=== PATIENT | male | born 1950 | race Caucasian/White ===

== ENCOUNTER 2021-06-30 09:45 | Inpatient (IN) ==
[2021-06-30 09:50] VITALS: BMI 34.8
--- NOTE | 2021-06-30 10:14 | DR.URIAD ---
HPI Time Seen Time Seen by Provider: 06/30/21 10:11 PCP Primary Care Physician: Lora Complaint Chief Complaint Doctors Comments: c/o SOB and pos covid x 7 days. Chief Complaint:: Pt c/o shortness of breath, nausea and vomiting. He states he is covid positive. Test was done 06/21/21. Pt reports O2 sat was 77% this am. Self Treatment fo Chief Complaint: Zithromax, Prednisone, neb treatments COVID-19 Coronavirus risk:travel/contact w/high risk person: Yes Has patient experienced Coronavirus symptoms: Yes Coronavirus symptoms experienced: Shortness of Breath Reviewed Nurses Notes Reviewed: Yes Source History Provided: Patient Mode of Arrival Mode of Arrival: Wheelchair Timing Onset of Chief Complaint: 06/19/21 PMH PMH Past Medical History: Yes Past Medical History: Hypertension Past Surgical History: Yes Past Surgical History Comment: hernia repair Family History History of Family Medical Conditions: Yes Family Medical History: Hypertension Social History Does patient currently use any type of tobacco product: No Have you used tobacco products in the last 12 months: No Type of Tobacco Use: None Does any household member use tobacco: No Alcohol Use: None Do you use any recreational Drugs:: No Lives With: Family Lives Where: Home Travel Risk Coronavirus risk:travel/contact w/high risk person: Yes Has patient experienced Coronavirus symptoms: Yes Coronavirus symptoms experienced: Shortness of Breath Infectious screening In the last 2 months have you had wt loss of >10#?: NO Have you had fever, night sweats or hemotysis?: No Have you traveled outside the country in the last 6 months?: No Isolation: Droplet ROS Review of Systems Constitutional: See HPI Eyes: No Symptoms Reported ENTM: No Symptoms Reported Respiratoy: See HPI Gastrointestinal/Abdominal: See HPI Neurological: No Symptoms Reported All Other Systems: Reviewed and Negative PE Vital Signs Vitals: Temperature 97.4 F Pulse Rate 88 Respiratory Rate 22 Blood Pressure 133/72 O2 Sat by Pulse Oximetry 94 General General Appearance: Alert and In Distress Head Head Exam: Normal Inspection, Atraumatic and Normocephalic ENT ENT Exam: Normal Exam Neck Neck Exam: Normal Inspection Chest Chest Inspection: Normal Inspection Respiratory Respiratory Exam: Respiratory Distress; negative Chest Wall Tenderness Respiratory Exam: Bilateral: Wheezing, Bilateral: Rales, Bilateral: Rhonchi and Bilateral: Decreased Breath Sounds Cardiovascular Cardiovascular Exam: Regular Rate and Normal Heart Sounds Abdominal Exam Abdominal Exam: Normal Inspection, Normal Bowel Sounds and Soft; negative Distention and Tenderness Extremeties Extremities Exam: Normal Inspection Back Back Exam: Normal Inspection Skin Skin Exam: Warm, Dry and Intact ROR Labs Reviewed Laboratory Results Reviewed?: Yes (pos covid. ) Result Diagrams: 06/30/21 10:17 06/30/21 10:17 Laboratory: WBC 8.2 X10^3/uL (3.6-10.0) 06/30/21 10:17 RBC 5.13 X10^6/uL (4.7-6.0) 06/30/21 10:17 Hgb 15.3 g/dL (13.5-18.0) 06/30/21 10:17 Hct 44.5 % (42.0-54.0) 06/30/21 10:17 MCV 86.7 fL (80.0-100.0) 06/30/21 10:17 MCH 29.8 pg (27.0-34.0) 06/30/21 10:17 MCHC 34.4 g/dL (33.0-35.0) 06/30/21 10:17 RDW 13.8 % (11.6-16.5) 06/30/21 10:17 Plt Count 373 X10^3/uL (150.0-450.0) 06/30/21 10:17 MPV 7.3 fL (7.4-11.0) L 06/30/21 10:17 Neut % (Auto) 82.3 % (42.0-75.0) H 06/30/21 10:17 Lymph % (Auto) 8.5 % (21.0-51.0) L 06/30/21 10:17 [place] % (Auto) 8.0 % (0.0-13.0) 06/30/21 10:17 Eos % (Auto) 1.0 % (0.9-2.9) 06/30/21 10:17 Baso % (Auto) 0.2 % (0.2-1.0) 06/30/21 10:17 Neut # (Auto) 6.7 x10^3/uL (2.2-4.8) H 06/30/21 10:17 Lymph # (Auto) 0.7 X10^3/uL (1.3-2.9) L 06/30/21 10:17 [place] # (Auto) 0.7 x10^3/uL (0.3-0.8) 06/30/21 10:17 Eos # (Auto) 0.1 x10^3/uL (0.0-0.2) 06/30/21 10:17 Baso # (Auto) 0.0 X10^3/uL (0.0-0.1) 06/30/21 10:17 Absolute Nucleated RBC 0.1 /100WBC 06/30/21 10:17 D-Dimer 1.35 ug/ml (0.0-0.57) H* 06/30/21 10:17 Sample Site Rbra 06/30/21 10:15 ABG pH 7.510 (7.35-7.45) H 06/30/21 10:15 ABG pCO2 36.0 mmHg (35.0-45.0) 06/30/21 10:15 ABG pO2 54.0 mmHg (80.0-100.0) L 06/30/21 10:15 ABG HCO3 28.7 mmol/L (22-26) H 06/30/21 10:15 ABG O2 Saturation 91.0 % (90-100) 06/30/21 10:15 ABG Base Excess 5.5 mmol/L (-2.0-2.0) H 06/30/21 10:15 [place] Test N/a 06/30/21 10:15 A-a Gradient 51.0 mmHg 06/30/21 10:15 FiO2 21.0 06/30/21 10:15 Blood Gas Comments Pt jonah well elj 06/30/21 10:15 Sodium 138 mmol/L (136-145) 06/30/21 10:17 Corrected Sodium 140 mmol/L (136-145) 06/30/21 10:17 Potassium 3.2 mmol/L (3.5-5.1) L 06/30/21 10:17 Chloride 100 mmol/L (98-107) 06/30/21 10:17 Carbon Dioxide 27.2 mmol/L (21-32) 06/30/21 10:17 BUN 26 mg/dL (7-18) H 06/30/21 10:17 Creatinine 1.03 mg/dL (0.70-1.30) 06/30/21 10:17 Est GFR (MDRD) Af Amer > 60 (>60) 06/30/21 10:17 Est GFR (MDRD) Non-Af > 60 (>60) 06/30/21 10:17 Glucose 165 mg/dL (65-99) H 06/30/21 10:17 Calcium 8.9 mg/dL (8.5-10.1) 06/30/21 10:17 Corrected Calcium 10.0 mg/dL (8.5-10.1) 06/30/21 10:17 Ferritin 1656 ng/mL (26-388) H 06/30/21 10:17 Total Bilirubin 1.50 mg/dL (0.2-1.0) H 06/30/21 10:17 AST 58 Units/L (15-37) H 06/30/21 10:17 ALT 100 Units/L (12-78) H 06/30/21 10:17 Alkaline Phosphatase 67 Units/L (46-116) 06/30/21 10:17 C-Reactive Protein 93.40 mg/L (0-3.0) H 06/30/21 10:17 B-Natriuretic Peptide 13.6 pg/mL (0-79) 06/30/21 10:17 Total Protein 7.2 g/dL (6.4-8.2) 06/30/21 10:17 Albumin 2.6 g/dL (3.4-5.0) L 06/30/21 10:17 Globulin 4.6 g/dL (2.5-4.5) H 06/30/21 10:17 Albumin/Globulin Ratio 0.6 Ratio (1.1-2.1) L 06/30/21 10:17 SARS-CoV-2 (PCR) Positive (NEGATIVE) A 06/30/21 13:03 Influenza Type A (PCR) Negative (NEGATIVE) 06/30/21 13:03 Influenza Type B (PCR) Negative (NEGATIVE) 06/30/21 13:03 RSV (PCR) Negative (NEGATIVE) 06/30/21 13:03 XRAY X-ray Results: cxr shows bilat infiltrates. CT unable to assess for PE. Opioid Opioid Risk Tool Age (Jung box if 16-45): No History of Preadolescent Sexual Abuse: No Total: 0 Total Score Risk Category: Low Risk Copyright: Mal [employer] predicting aberrant behaviors Diagnosis Discharge Problem: COVID, Acute respiratory distress ADDITIONAL NOTES Additional Notes Additional Notes: admit to dr diamond
[2021-06-30 10:21] LABS: ABG BASE EXCESS 5.5 mmol/L (-2.0-2.0); ABG HCO3 28.7 mmol/L (22-26)
[2021-06-30 10:41] LABS: BASOPHILS % (AUTO) 0.2 % (0.2-1.0); EOSINOPHILS # (AUTO) 0.1 x10^3/uL (0.0-0.2); HEMATOCRIT 44.5 % (42.0-54.0); HEMOGLOBIN 15.3 g/dL (13.5-18.0); LYMPHOCYTES # (AUTO) 0.7 X10^3/uL (1.3-2.9); LYMPHOCYTES % (AUTO) 8.5 % (21.0-51.0); MEAN CORPUSCULAR HEMOGLOBIN 29.8 pg (27.0-34.0); MEAN CORPUSCULAR HGB CONC 34.4 g/dL (33.0-35.0); MEAN CORPUSCULAR VOLUME 86.7 fL (80.0-100.0); MEAN PLATELET VOLUME 7.3 fL (7.4-11.0); MONOCYTES # (AUTO) 0.7 x10^3/uL (0.3-0.8); NEUTROPHILS # (AUTO) 6.7 x10^3/uL (2.2-4.8); NEUTROPHILS % (AUTO) 82.3 % (42.0-75.0); PLATELET COUNT 373 X10^3/uL (150.0-450.0); RED BLOOD COUNT 5.13 X10^6/uL (4.7-6.0); RED CELL DISTRIBUTION WIDTH 13.8 % (11.6-16.5); WHITE BLOOD COUNT 8.2 X10^3/uL (3.6-10.0)
--- NOTE | 2021-06-30 10:49 | RAD ---
HISTORYCOUGH, COVIDSTUDYCHEST, 1 VIEWCOMPARISONNoneTECHNIQUEPortable chest radiographFINDINGSDeveloping patchy bilateral pulmonary opacities/infiltrates with peripheral, subpleural distribution and peribronchial distribution is compatible with an atypical pneumonia pattern. The heart size and mediastinal contours are normal. The pleural spaces are clear. There is no evidence of free air or pneumothorax. No acute osseous abnormalities of the chest are demonstrated.IMPRESSIONModerate, multifocal bilateral pulmonary opacities/infiltrates suggestive of an atypical pneumonia pattern. This may be associated with nonspecific viral and atypical organism infections, including COVID-19 the appropriate clinical settingElectronically signed by: SHARON LAROSE (Jun 30, 2021 10:47:54)
[2021-06-30 10:54] LABS: ALANINE AMINOTRANSFERASE 100 Units/L (12-78); ALBUMIN 2.6 g/dL (3.4-5.0); ALKALINE PHOSPHATASE 67 Units/L (46-116); ASPARTATE AMINO TRANSFERASE 58 Units/L (15-37); BLOOD UREA NITROGEN 26 mg/dL (7-18); CALCIUM 8.9 mg/dL (8.5-10.1); CARBON DIOXIDE 27.2 mmol/L (21-32); CHLORIDE 100 mmol/L (98-107); COR NA(FOR HYPERGLY) 140 mmol/L (136-145); CREATININE 1.03 mg/dL (0.70-1.30); SODIUM 138 mmol/L (136-145); TOTAL PROTEIN 7.2 g/dL (6.4-8.2); eGFR NON BLACK RACES > 60 (>60)
[2021-06-30] MEDS ORDERED: NS 100 ML IV 100 ML ONE (11:29)
--- NOTE | 2021-06-30 12:20 | CT ---
HISTORYCOVID, ELEVATED D DIMERSTUDYCTA CHESTCOMPARISONNone availableTECHNIQUEPulmonary angiogram protocol was performed. 3D MIPS images were performed. CT scan was performed following ALARA (As low as Reasonably Achievable).Coronal and Sagittal reformatted images were performed..FINDINGSTechnically limited study for the diagnosis of pulmonary embolism, the contrast in the main pulmonary arteries is approximately 97, most of the contrast is seen in the left atrium. There is no pleural or pericardial effusions. There is no axillary adenopathy. There is diffuse fatty liver, no adrenal masses, the spleen is nonenlarged, the stomach is decompressedThere are small sub carinal lymph node measuring in short axis 0.8 centimetersLung windows there are peripheral patchy ground-glass radiopacities consistent with viral pneumonia involving the upper to midlung zones and the lower lobes. There is no evidence of pneumothorax or pneumomediastinum, no dominant lung masses no dominant lung nodules. No filling defects in the trachea.Bone windows there is no evidence of aggressive bone lesions. No acute fracturesMultiple anterior osteophytes.IMPRESSIONTechnically limited for the diagnosis of PE, the bolus of contrast is seen in the left atrium and in the aorta. Study can be repeated if the renal function is normal with a shorter time for contrast triggering, an addendum can be performed.Small sub carinal lymph nodesPeripheral ground-glass radiopacities diffusely consistent with covid pneumonia.Electronically signed by: Funmilayo Marquez (Jun 30, 2021 12:17:29)
[2021-06-30] MEDS ORDERED: DUONEB 0.5 MG/3 MG (3 mL) NEB ONE (12:30)
[2021-06-30] MEDS ORDERED: LOVENOX INJ 80 MG SYR SC ONE ×2 (12:45→13:00)
[2021-06-30] MEDS ORDERED: DECADRON INJ ONE (12:59)
[2021-06-30] MEDS: DECADRON INJ IVP ONE (13:05)
[2021-06-30] MEDS ORDERED: VITAMIN A PO SCH (14:30)
[2021-06-30 14:38] LABS: BASOPHILS % (AUTO) 0.5 % (0.2-1.0); EOSINOPHILS # (AUTO) 0.1 x10^3/uL (0.0-0.2); EOSINOPHILS % (AUTO) 0.7 % (0.9-2.9); LYMPHOCYTES # (AUTO) 0.6 X10^3/uL (1.3-2.9); LYMPHOCYTES % (AUTO) 7.4 % (21.0-51.0); MEAN CORPUSCULAR HEMOGLOBIN 29.6 pg (27.0-34.0); MEAN CORPUSCULAR HGB CONC 34.2 g/dL (33.0-35.0); MEAN CORPUSCULAR VOLUME 86.5 fL (80.0-100.0); MEAN PLATELET VOLUME 7.1 fL (7.4-11.0); MONOCYTES # (AUTO) 0.6 x10^3/uL (0.3-0.8); NEUTROPHILS # (AUTO) 6.9 x10^3/uL (2.2-4.8); NEUTROPHILS % (AUTO) 84.4 % (42.0-75.0); PLATELET COUNT 389 X10^3/uL (150.0-450.0); RED BLOOD COUNT 5.08 X10^6/uL (4.7-6.0); RED CELL DISTRIBUTION WIDTH 13.7 % (11.6-16.5); WHITE BLOOD COUNT 8.1 X10^3/uL (3.6-10.0)
[2021-06-30 14:53] LABS: ALANINE AMINOTRANSFERASE 93 Units/L (12-78); ALBUMIN 2.6 g/dL (3.4-5.0); ALKALINE PHOSPHATASE 67 Units/L (46-116); ASPARTATE AMINO TRANSFERASE 51 Units/L (15-37); BLOOD UREA NITROGEN 24 mg/dL (7-18); CALCIUM 8.8 mg/dL (8.5-10.1); CHLORIDE 100 mmol/L (98-107); COR CA(FOR HYPOALB) 9.9 mg/dL (8.5-10.1); COR NA(FOR HYPERGLY) 139 mmol/L (136-145); CREATININE 1.05 mg/dL (0.70-1.30); SODIUM 138 mmol/L (136-145); TOTAL PROTEIN 7.2 g/dL (6.4-8.2); TROPONIN I < 0.02 ng/mL (0-1.5); eGFR NON BLACK RACES > 60 (>60)
[2021-06-30] MEDS ORDERED: NS 1000 ML 1,000 ML IV SCH (15:00)
[2021-06-30] MEDS ORDERED: PHARMACY CONSULT - LOVENOX XX SCH (15:00)
[2021-06-30] MEDS ORDERED: PHARMACY CONSULT - IVERMECTIN XX SCH (15:00)
[2021-06-30] MEDS ORDERED: CYTOTEC ONE (15:40)
[2021-06-30] MEDS ORDERED: NS 1000 ML 1,000 ML ONE (15:41)
[2021-06-30] MEDS: VITAMIN D (1.25MG) PO SCH (15:46)
[2021-06-30] MEDS: IVERMECTIN PO SCH (15:47)
[2021-06-30] MEDS: ZINC SULFATE PO SCH ×2 (15:47→20:23)
[2021-06-30] MEDS: ASCORBIC ACID INJ MULTI-DOSE VIAL 1,500 MG in NS 100 ML IV 100 ML IV SCH ×2 (15:47→20:22)
[2021-06-30] MEDS: SOLU-Medrol 125 MG VIAL IVP SCH ×2 (15:47→20:24)
[2021-06-30] MEDS ORDERED: LOVENOX INJ 120 MG SYR SC SCH (16:00)
[2021-06-30] MEDS: CYTOTEC PO SCH ×2 (16:02→20:23)
[2021-06-30] MEDS ORDERED: PULMICORT NEB TX 0.5 MG NEB ONE (19:47)
[2021-06-30] MEDS ORDERED: THIAMINE HCL INJ ONE (19:47)
[2021-06-30] MEDS ORDERED: LOVENOX INJ 100 MG SYR SC ONE (19:48)
[2021-06-30] MEDS ORDERED: PROTONIX INJ 40 MG VIAL ONE (19:48)
[2021-06-30] MEDS ORDERED: PEPCID TAB 40 MG ONE (19:48)
[2021-06-30] MEDS ORDERED: MELATONIN ONE (19:48)
[2021-06-30] MEDS ORDERED: BROVANA ONE (19:48)
[2021-06-30] MEDS: THIAMINE HCL INJ IVP SCH (20:23)
[2021-06-30] MEDS: PEPCID TAB 40 MG PO SCH (20:23)
[2021-06-30] MEDS: MELATONIN PO SCH (20:23)
[2021-06-30] MEDS: PROTONIX INJ 40 MG VIAL IVP SCH (20:24)
[2021-06-30] MEDS: LOVENOX INJ 120 MG SYR SC SCH (21:00)
[2021-06-30] MEDS: PULMICORT NEB TX 0.5 MG NEB SCH (21:46)
[2021-06-30] MEDS: BROVANA IN SCH (21:46)
[2021-07-01] MEDS: ASCORBIC ACID INJ MULTI-DOSE VIAL 1,500 MG in NS 100 ML IV 100 ML IV SCH ×4 (04:00→21:00)
[2021-07-01] MEDS: SOLU-Medrol 125 MG VIAL IVP SCH ×4 (04:00→21:00)
[2021-07-01 05:43] LABS: BASOPHILS % (AUTO) 0.3 % (0.2-1.0); HEMATOCRIT 40.6 % (42.0-54.0); HEMOGLOBIN 13.9 g/dL (13.5-18.0); LYMPHOCYTES # (AUTO) 0.7 X10^3/uL (1.3-2.9); LYMPHOCYTES % (AUTO) 10.4 % (21.0-51.0); MEAN CORPUSCULAR HEMOGLOBIN 29.5 pg (27.0-34.0); MEAN CORPUSCULAR HGB CONC 34.2 g/dL (33.0-35.0); MEAN CORPUSCULAR VOLUME 86.2 fL (80.0-100.0); MEAN PLATELET VOLUME 7.3 fL (7.4-11.0); MONOCYTES # (AUTO) 0.2 x10^3/uL (0.3-0.8); MONOCYTES % (AUTO) 2.7 % (0.0-13.0); NEUTROPHILS # (AUTO) 5.6 x10^3/uL (2.2-4.8); NEUTROPHILS % (AUTO) 86.6 % (42.0-75.0); PLATELET COUNT 369 X10^3/uL (150.0-450.0); RED BLOOD COUNT 4.71 X10^6/uL (4.7-6.0); WHITE BLOOD COUNT 6.5 X10^3/uL (3.6-10.0)
[2021-07-01 05:48] LABS: ALANINE AMINOTRANSFERASE 71 Units/L (12-78); ALBUMIN 2.2 g/dL (3.4-5.0); ALKALINE PHOSPHATASE 53 Units/L (46-116); ASPARTATE AMINO TRANSFERASE 34 Units/L (15-37); BLOOD UREA NITROGEN 29 mg/dL (7-18); CALCIUM 8.5 mg/dL (8.5-10.1); CARBON DIOXIDE 26.5 mmol/L (21-32); CHLORIDE 101 mmol/L (98-107); COR CA(FOR HYPOALB) 9.9 mg/dL (8.5-10.1); COR NA(FOR HYPERGLY) 140 mmol/L (136-145); CREATININE 1.04 mg/dL (0.70-1.30); SODIUM 137 mmol/L (136-145); TOTAL PROTEIN 6.7 g/dL (6.4-8.2); eGFR NON BLACK RACES > 60 (>60)
[2021-07-01] MEDS: THIAMINE HCL INJ IVP SCH ×2 (08:23→21:01)
[2021-07-01] MEDS: PROTONIX INJ 40 MG VIAL IVP SCH ×2 (08:24→21:00)
[2021-07-01] MEDS: LOVENOX INJ 120 MG SYR SC SCH ×2 (08:24→21:00)
[2021-07-01] MEDS: ZINC SULFATE PO SCH ×2 (08:25→20:59)
[2021-07-01] MEDS: PEPCID TAB 40 MG PO SCH ×2 (08:25→20:59)
[2021-07-01] MEDS: LIPITOR TAB 80 MG PO SCH (08:25)
[2021-07-01] MEDS: VITAMIN D (1.25MG) PO SCH (08:25)
[2021-07-01] MEDS: CYTOTEC PO SCH ×4 (08:26→20:59)
[2021-07-01] MEDS: VITAMIN A PO SCH ×2 (08:32→09:58)
[2021-07-01] MEDS: IVERMECTIN PO SCH (08:32)
[2021-07-01] MEDS ORDERED: NS 1/2 1000 ML IV 1,000 ML IV ONE ×2 (08:49→21:53)
[2021-07-01] MEDS: NS 1/2 1000 ML IV 1,000 ML IV SCH ×3 (08:54→22:02)
[2021-07-01] MEDS: BROVANA IN SCH ×2 (09:00→21:19)
[2021-07-01] MEDS: PULMICORT NEB TX 0.5 MG NEB SCH ×2 (09:00→21:19)
[2021-07-01] MEDS: ACTOS PO SCH (10:00)
[2021-07-01] MEDS: PERIACTIN TAB 4 MG PO PRN (20:59)
[2021-07-01] MEDS: GLUCOPHAGE XR 24-HR PO SCH (20:59)
[2021-07-01] MEDS: MELATONIN PO SCH (20:59)
[2021-07-02] MEDS: ASCORBIC ACID INJ MULTI-DOSE VIAL 1,500 MG in NS 100 ML IV 100 ML IV SCH ×3 (03:39→14:00)
[2021-07-02] MEDS: SOLU-Medrol 125 MG VIAL IVP SCH ×4 (03:40→20:01)
[2021-07-02 06:31] LABS: BASOPHILS % (AUTO) 0.1 % (0.2-1.0); HEMATOCRIT 39.2 % (42.0-54.0); HEMOGLOBIN 13.3 g/dL (13.5-18.0); LYMPHOCYTES # (AUTO) 0.7 X10^3/uL (1.3-2.9); LYMPHOCYTES % (AUTO) 4.6 % (21.0-51.0); MEAN CORPUSCULAR HEMOGLOBIN 29.7 pg (27.0-34.0); MEAN CORPUSCULAR VOLUME 87.3 fL (80.0-100.0); MEAN PLATELET VOLUME 7.3 fL (7.4-11.0); MONOCYTES # (AUTO) 0.5 x10^3/uL (0.3-0.8); MONOCYTES % (AUTO) 3.8 % (0.0-13.0); NEUTROPHILS # (AUTO) 13.1 x10^3/uL (2.2-4.8); NEUTROPHILS % (AUTO) 91.5 % (42.0-75.0); PLATELET COUNT 426 X10^3/uL (150.0-450.0); RED BLOOD COUNT 4.49 X10^6/uL (4.7-6.0); RED CELL DISTRIBUTION WIDTH 13.9 % (11.6-16.5); WHITE BLOOD COUNT 14.4 X10^3/uL (3.6-10.0)
[2021-07-02 06:36] LABS: ALANINE AMINOTRANSFERASE 56 Units/L (12-78); ALBUMIN 2.1 g/dL (3.4-5.0); ALKALINE PHOSPHATASE 57 Units/L (46-116); ASPARTATE AMINO TRANSFERASE 23 Units/L (15-37); BLOOD UREA NITROGEN 32 mg/dL (7-18); CALCIUM 8.1 mg/dL (8.5-10.1); CARBON DIOXIDE 24.5 mmol/L (21-32); CHLORIDE 102 mmol/L (98-107); COR CA(FOR HYPOALB) 9.6 mg/dL (8.5-10.1); COR NA(FOR HYPERGLY) 143 mmol/L (136-145); CREATININE 1.45 mg/dL (0.70-1.30); SODIUM 137 mmol/L (136-145); TOTAL PROTEIN 6.4 g/dL (6.4-8.2); eGFR NON BLACK RACES 51 (>60)
[2021-07-02 07:26] LABS: BAND NEUTROPHILS % 1 % (0-10); PLATELET MORPHOLOGY COMMENT NORMAL (NORMAL)
[2021-07-02] MEDS ORDERED: LR 1000 ML IV 1,000 ML IV ONE (08:18)
[2021-07-02] MEDS: BROVANA IN SCH ×2 (10:02→20:52)
[2021-07-02] MEDS: PULMICORT NEB TX 0.5 MG NEB SCH ×2 (10:02→20:52)
[2021-07-02] MEDS ORDERED: NS 1/2 1000 ML IV 1,000 ML IV ONE ×2 (10:46→23:14)
[2021-07-02] MEDS: CYTOTEC PO SCH ×4 (10:51→20:00)
[2021-07-02] MEDS: ACTOS PO SCH (10:51)
[2021-07-02] MEDS: IVERMECTIN PO SCH (10:52)
[2021-07-02] MEDS: GLUCOPHAGE XR 24-HR PO SCH ×3 (10:52→20:06)
[2021-07-02] MEDS: PROTONIX INJ 40 MG VIAL IVP SCH ×2 (10:53→20:01)
[2021-07-02] MEDS: VITAMIN D3 125 mcg (5,000 UNITS) PO SCH (10:53)
[2021-07-02] MEDS: PEPCID TAB 40 MG PO SCH ×2 (10:53→20:00)
[2021-07-02] MEDS: ZINC SULFATE PO SCH ×3 (10:53→20:05)
[2021-07-02] MEDS: VITAMIN A PO SCH (10:54)
[2021-07-02] MEDS: THIAMINE HCL INJ IVP SCH ×2 (10:54→20:06)
[2021-07-02] MEDS: NS 1/2 1000 ML IV 1,000 ML IV SCH ×2 (10:56→23:25)
[2021-07-02] MEDS: LOVENOX INJ 120 MG SYR SC SCH ×2 (11:17→20:17)
[2021-07-02] MEDS: LIPITOR TAB 80 MG PO SCH (11:50)
[2021-07-02] MEDS ORDERED: NS 1000 ML 1,000 ML ONE (14:47)
[2021-07-02] MEDS: MELATONIN PO SCH (20:00)
[2021-07-02] MEDS: ASCORBIC ACID INJ MULTI-DOSE VIAL 1,500 MG in NS 50 ML IV 50 ML IV SCH (20:17)
[2021-07-03] MEDS: PERIACTIN TAB 4 MG PO PRN ×2 (03:10→21:00)
[2021-07-03] MEDS: SOLU-Medrol 125 MG VIAL IVP SCH ×4 (03:10→21:00)
[2021-07-03] MEDS: ASCORBIC ACID INJ MULTI-DOSE VIAL 1,500 MG in NS 50 ML IV 50 ML IV SCH ×4 (03:10→21:00)
[2021-07-03 06:20] LABS: ALANINE AMINOTRANSFERASE 47 Units/L (12-78); ALKALINE PHOSPHATASE 56 Units/L (46-116); ASPARTATE AMINO TRANSFERASE 24 Units/L (15-37); BLOOD UREA NITROGEN 32 mg/dL (7-18); CALCIUM 7.9 mg/dL (8.5-10.1); CARBON DIOXIDE 20.7 mmol/L (21-32); CHLORIDE 105 mmol/L (98-107); COR CA(FOR HYPOALB) 9.5 mg/dL (8.5-10.1); COR NA(FOR HYPERGLY) 145 mmol/L (136-145); CREATININE 1.38 mg/dL (0.70-1.30); SODIUM 139 mmol/L (136-145); TOTAL PROTEIN 5.9 g/dL (6.4-8.2); eGFR NON BLACK RACES 54 (>60)
[2021-07-03 06:22] LABS: BASOPHILS % (AUTO) 0.1 % (0.2-1.0); HEMOGLOBIN 12.9 g/dL (13.5-18.0); LYMPHOCYTES # (AUTO) 0.5 X10^3/uL (1.3-2.9); LYMPHOCYTES % (AUTO) 4.5 % (21.0-51.0); MEAN CORPUSCULAR HEMOGLOBIN 29.3 pg (27.0-34.0); MEAN CORPUSCULAR HGB CONC 33.9 g/dL (33.0-35.0); MEAN CORPUSCULAR VOLUME 86.3 fL (80.0-100.0); MEAN PLATELET VOLUME 7.2 fL (7.4-11.0); MONOCYTES # (AUTO) 0.5 x10^3/uL (0.3-0.8); MONOCYTES % (AUTO) 4.3 % (0.0-13.0); NEUTROPHILS # (AUTO) 10.3 x10^3/uL (2.2-4.8); NEUTROPHILS % (AUTO) 91.1 % (42.0-75.0); PLATELET COUNT 421 X10^3/uL (150.0-450.0); RED CELL DISTRIBUTION WIDTH 13.7 % (11.6-16.5); WHITE BLOOD COUNT 11.3 X10^3/uL (3.6-10.0)
[2021-07-03 07:02] LABS: PLATELET MORPHOLOGY COMMENT NORMAL (NORMAL)
[2021-07-03] MEDS: PULMICORT NEB TX 0.5 MG NEB SCH ×2 (08:32→21:19)
[2021-07-03] MEDS: BROVANA IN SCH ×2 (08:32→21:19)
[2021-07-03] MEDS ORDERED: LR 1000 ML IV 2,000 ML IV ONE (08:43)
[2021-07-03] MEDS: CYTOTEC PO SCH ×4 (08:59→21:00)
[2021-07-03] MEDS: GLUCOPHAGE XR 24-HR PO SCH ×2 (08:59→21:00)
[2021-07-03] MEDS: IVERMECTIN PO SCH (08:59)
[2021-07-03] MEDS: LOVENOX INJ 120 MG SYR SC SCH ×2 (08:59→21:56)
[2021-07-03] MEDS: ACTOS PO SCH (08:59)
[2021-07-03] MEDS: LIPITOR TAB 80 MG PO SCH (08:59)
[2021-07-03] MEDS: VITAMIN A PO SCH (09:00)
[2021-07-03] MEDS: PEPCID TAB 40 MG PO SCH ×2 (09:00→21:00)
[2021-07-03] MEDS: THIAMINE HCL INJ IVP SCH ×2 (09:00→21:00)
[2021-07-03] MEDS: PROTONIX INJ 40 MG VIAL IVP SCH ×2 (09:00→21:00)
[2021-07-03] MEDS: VITAMIN D3 125 mcg (5,000 UNITS) PO SCH (09:00)
[2021-07-03] MEDS: ZINC SULFATE PO SCH ×2 (09:01→21:00)
[2021-07-03] MEDS ORDERED: NS 1/2 1000 ML IV 1,000 ML IV ONE (09:07)
[2021-07-03] MEDS: NS 1/2 1000 ML IV 1,000 ML IV SCH ×2 (09:15→13:21)
[2021-07-03] MEDS: DIFLUCAN 200 MG IV PREMIX* 200 MG/100 ML BAG IV SCH (11:52)
[2021-07-03] MEDS: MELATONIN PO SCH (21:00)
[2021-07-03] MEDS: TUSSIONEX PENNKINETIC SUSP PO PRN (23:00)
[2021-07-04] MEDS ORDERED: NS 1/2 1000 ML IV 1,000 ML IV ONE ×2 (02:57→16:44)
[2021-07-04] MEDS: ASCORBIC ACID INJ MULTI-DOSE VIAL 1,500 MG in NS 50 ML IV 50 ML IV SCH ×4 (03:00→22:00)
[2021-07-04] MEDS: SOLU-Medrol 125 MG VIAL IVP SCH ×4 (03:00→22:00)
[2021-07-04] MEDS: NS 1/2 1000 ML IV 1,000 ML IV SCH ×2 (03:08→17:16)
[2021-07-04 06:22] LABS: BASOPHILS % (AUTO) 0.1 % (0.2-1.0); HEMATOCRIT 39.3 % (42.0-54.0); HEMOGLOBIN 13.6 g/dL (13.5-18.0); LYMPHOCYTES # (AUTO) 0.6 X10^3/uL (1.3-2.9); LYMPHOCYTES % (AUTO) 5.5 % (21.0-51.0); MEAN CORPUSCULAR HGB CONC 34.7 g/dL (33.0-35.0); MEAN CORPUSCULAR VOLUME 86.6 fL (80.0-100.0); MEAN PLATELET VOLUME 7.3 fL (7.4-11.0); MONOCYTES # (AUTO) 0.3 x10^3/uL (0.3-0.8); MONOCYTES % (AUTO) 2.8 % (0.0-13.0); NEUTROPHILS # (AUTO) 9.6 x10^3/uL (2.2-4.8); NEUTROPHILS % (AUTO) 91.6 % (42.0-75.0); PLATELET COUNT 389 X10^3/uL (150.0-450.0); RED BLOOD COUNT 4.54 X10^6/uL (4.7-6.0); WHITE BLOOD COUNT 10.4 X10^3/uL (3.6-10.0)
[2021-07-04 06:52] LABS: ALANINE AMINOTRANSFERASE 54 Units/L (12-78); ALBUMIN 2.1 g/dL (3.4-5.0); ALKALINE PHOSPHATASE 55 Units/L (46-116); ASPARTATE AMINO TRANSFERASE 34 Units/L (15-37); BLOOD UREA NITROGEN 30 mg/dL (7-18); CALCIUM 7.8 mg/dL (8.5-10.1); CARBON DIOXIDE 22.6 mmol/L (21-32); CHLORIDE 105 mmol/L (98-107); COR CA(FOR HYPOALB) 9.3 mg/dL (8.5-10.1); COR NA(FOR HYPERGLY) 143 mmol/L (136-145); CREATININE 1.23 mg/dL (0.70-1.30); SODIUM 139 mmol/L (136-145); TOTAL PROTEIN 5.9 g/dL (6.4-8.2); eGFR NON BLACK RACES > 60 (>60)
[2021-07-04 07:21] LABS: BAND NEUTROPHILS % 1 % (0-10); PLATELET MORPHOLOGY COMMENT NORMAL (NORMAL)
[2021-07-04] MEDS: CYTOTEC PO SCH ×4 (09:19→22:00)
[2021-07-04] MEDS: ACTOS PO SCH (09:19)
[2021-07-04] MEDS: GLUCOPHAGE XR 24-HR PO SCH ×2 (09:20→22:00)
[2021-07-04] MEDS: PEPCID TAB 40 MG PO SCH ×2 (09:20→22:00)
[2021-07-04] MEDS: LIPITOR TAB 80 MG PO SCH (09:20)
[2021-07-04] MEDS: IVERMECTIN PO SCH (09:20)
[2021-07-04] MEDS: LOVENOX INJ 120 MG SYR SC SCH ×2 (09:20→23:29)
[2021-07-04] MEDS: VITAMIN A PO SCH (09:21)
[2021-07-04] MEDS: VITAMIN D3 125 mcg (5,000 UNITS) PO SCH (09:21)
[2021-07-04] MEDS: THIAMINE HCL INJ IVP SCH ×2 (09:21→22:00)
[2021-07-04] MEDS: PROTONIX INJ 40 MG VIAL IVP SCH ×2 (09:21→22:00)
[2021-07-04] MEDS: ZINC SULFATE PO SCH ×2 (09:21→22:00)
[2021-07-04] MEDS: DIFLUCAN 200 MG IV PREMIX* 200 MG/100 ML BAG IV SCH (09:25)
[2021-07-04] MEDS: PULMICORT NEB TX 0.5 MG NEB SCH ×2 (09:27→20:30)
[2021-07-04] MEDS: BROVANA IN SCH ×2 (09:27→20:30)
[2021-07-04] MEDS: MELATONIN PO SCH (22:00)
[2021-07-04] MEDS: TUSSIONEX PENNKINETIC SUSP PO PRN (22:15)
[2021-07-05] MEDS ORDERED: NS 1/2 1000 ML IV 1,000 ML IV ONE ×2 (00:39→14:09)
[2021-07-05] MEDS: ASCORBIC ACID INJ MULTI-DOSE VIAL 1,500 MG in NS 50 ML IV 50 ML IV SCH ×4 (03:00→21:05)
[2021-07-05] MEDS: SOLU-Medrol 125 MG VIAL IVP SCH ×3 (03:00→21:07)
[2021-07-05] MEDS: NS 1/2 1000 ML IV 1,000 ML IV SCH ×2 (03:00→16:47)
[2021-07-05 06:40] LABS: BASOPHILS % (AUTO) 0.2 % (0.2-1.0); HEMATOCRIT 40.9 % (42.0-54.0); HEMOGLOBIN 14.1 g/dL (13.5-18.0); LYMPHOCYTES # (AUTO) 0.6 X10^3/uL (1.3-2.9); LYMPHOCYTES % (AUTO) 4.8 % (21.0-51.0); MEAN CORPUSCULAR HEMOGLOBIN 29.7 pg (27.0-34.0); MEAN CORPUSCULAR HGB CONC 34.5 g/dL (33.0-35.0); MEAN PLATELET VOLUME 7.5 fL (7.4-11.0); MONOCYTES # (AUTO) 0.3 x10^3/uL (0.3-0.8); MONOCYTES % (AUTO) 2.9 % (0.0-13.0); NEUTROPHILS # (AUTO) 10.9 x10^3/uL (2.2-4.8); NEUTROPHILS % (AUTO) 92.1 % (42.0-75.0); PLATELET COUNT 363 X10^3/uL (150.0-450.0); RED BLOOD COUNT 4.75 X10^6/uL (4.7-6.0); RED CELL DISTRIBUTION WIDTH 13.6 % (11.6-16.5); WHITE BLOOD COUNT 11.8 X10^3/uL (3.6-10.0)
[2021-07-05 06:43] LABS: ALANINE AMINOTRANSFERASE 59 Units/L (12-78); ALBUMIN 2.2 g/dL (3.4-5.0); ALKALINE PHOSPHATASE 54 Units/L (46-116); ASPARTATE AMINO TRANSFERASE 32 Units/L (15-37); BLOOD UREA NITROGEN 29 mg/dL (7-18); CALCIUM 7.6 mg/dL (8.5-10.1); CARBON DIOXIDE 24.1 mmol/L (21-32); CHLORIDE 105 mmol/L (98-107); COR NA(FOR HYPERGLY) 143 mmol/L (136-145); CREATININE 1.36 mg/dL (0.70-1.30); SODIUM 138 mmol/L (136-145); TOTAL PROTEIN 5.9 g/dL (6.4-8.2); eGFR NON BLACK RACES 55 (>60)
[2021-07-05 07:45] LABS: BAND NEUTROPHILS % 2 % (0-10); METAMYELOCYTES % 1; PLATELET MORPHOLOGY COMMENT NORMAL (NORMAL)
[2021-07-05] MEDS: ACTOS PO SCH (08:10)
[2021-07-05] MEDS: DIFLUCAN 200 MG IV PREMIX* 200 MG/100 ML BAG IV SCH (08:13)
[2021-07-05] MEDS: CYTOTEC PO SCH ×4 (08:13→21:07)
[2021-07-05] MEDS: VITAMIN D3 125 mcg (5,000 UNITS) PO SCH (08:13)
[2021-07-05] MEDS: LIPITOR TAB 80 MG PO SCH (08:14)
[2021-07-05] MEDS: GLUCOPHAGE XR 24-HR PO SCH ×2 (08:14→21:07)
[2021-07-05] MEDS: VITAMIN A PO SCH (08:14)
[2021-07-05] MEDS: PROTONIX INJ 40 MG VIAL IVP SCH ×2 (08:14→21:06)
[2021-07-05] MEDS: THIAMINE HCL INJ IVP SCH ×2 (08:14→21:05)
[2021-07-05] MEDS: PEPCID TAB 40 MG PO SCH ×2 (08:14→21:06)
[2021-07-05] MEDS: LOVENOX INJ 120 MG SYR SC SCH (08:14)
[2021-07-05] MEDS: ZINC SULFATE PO SCH ×2 (08:15→21:05)
[2021-07-05] MEDS: PULMICORT NEB TX 0.5 MG NEB SCH ×2 (10:00→20:30)
[2021-07-05] MEDS: BROVANA IN SCH ×2 (10:00→20:30)
[2021-07-05] MEDS: AVELOX TAB 400 MG PO SCH (16:44)
[2021-07-05] MEDS: DIFLUCAN PO SCH (16:44)
[2021-07-05] MEDS: MELATONIN PO SCH (21:06)
[2021-07-05] MEDS: ELIQUIS PO SCH (21:29)
[2021-07-06] MEDS ORDERED: NS 1/2 1000 ML IV 1,000 ML IV ONE ×2 (00:48→07:47)
[2021-07-06] MEDS: NS 1/2 1000 ML IV 1,000 ML IV SCH ×3 (00:58→23:34)
[2021-07-06] MEDS: TUSSIONEX PENNKINETIC SUSP PO PRN ×2 (01:52→20:27)
[2021-07-06] MEDS: SOLU-Medrol 125 MG VIAL IVP SCH (03:00)
[2021-07-06] MEDS: ASCORBIC ACID INJ MULTI-DOSE VIAL 1,500 MG in NS 50 ML IV 50 ML IV SCH ×4 (03:59→20:27)
[2021-07-06 04:21] LABS: ABG ALLEN TEST POS; ABG HCO3 27.1 mmol/L (22-26)
[2021-07-06 05:12] LABS: BASOPHILS % (AUTO) 0.2 % (0.2-1.0); HEMATOCRIT 37.8 % (42.0-54.0); LYMPHOCYTES # (AUTO) 0.3 X10^3/uL (1.3-2.9); LYMPHOCYTES % (AUTO) 2.9 % (21.0-51.0); MEAN CORPUSCULAR HEMOGLOBIN 29.4 pg (27.0-34.0); MEAN CORPUSCULAR HGB CONC 34.5 g/dL (33.0-35.0); MEAN CORPUSCULAR VOLUME 85.4 fL (80.0-100.0); MEAN PLATELET VOLUME 7.4 fL (7.4-11.0); MONOCYTES # (AUTO) 0.3 x10^3/uL (0.3-0.8); MONOCYTES % (AUTO) 2.9 % (0.0-13.0); NEUTROPHILS # (AUTO) 11.2 x10^3/uL (2.2-4.8); PLATELET COUNT 312 X10^3/uL (150.0-450.0); RED BLOOD COUNT 4.43 X10^6/uL (4.7-6.0); RED CELL DISTRIBUTION WIDTH 13.5 % (11.6-16.5); WHITE BLOOD COUNT 11.9 X10^3/uL (3.6-10.0)
[2021-07-06 05:28] LABS: ALANINE AMINOTRANSFERASE 61 Units/L (12-78); ALBUMIN 1.9 g/dL (3.4-5.0); ALKALINE PHOSPHATASE 49 Units/L (46-116); ASPARTATE AMINO TRANSFERASE 38 Units/L (15-37); BLOOD UREA NITROGEN 28 mg/dL (7-18); CALCIUM 7.4 mg/dL (8.5-10.1); CARBON DIOXIDE 25.2 mmol/L (21-32); CHLORIDE 103 mmol/L (98-107); COR CA(FOR HYPOALB) 9.1 mg/dL (8.5-10.1); COR NA(FOR HYPERGLY) 139 mmol/L (136-145); CREATININE 1.05 mg/dL (0.70-1.30); SODIUM 135 mmol/L (136-145); TOTAL PROTEIN 5.3 g/dL (6.4-8.2); eGFR NON BLACK RACES > 60 (>60)
[2021-07-06 05:44] LABS: PLATELET MORPHOLOGY COMMENT NORMAL (NORMAL)
[2021-07-06] MEDS: ACTOS PO SCH (08:02)
[2021-07-06] MEDS: DIFLUCAN PO SCH (08:03)
[2021-07-06] MEDS: CYTOTEC PO SCH ×4 (08:03→20:27)
[2021-07-06] MEDS: ELIQUIS PO SCH ×2 (08:03→20:27)
[2021-07-06] MEDS: GLUCOPHAGE XR 24-HR PO SCH ×2 (08:03→20:26)
[2021-07-06] MEDS: THIAMINE HCL INJ IVP SCH ×2 (08:04→20:26)
[2021-07-06] MEDS: PROTONIX INJ 40 MG VIAL IVP SCH ×2 (08:04→20:25)
[2021-07-06] MEDS: VITAMIN A PO SCH (08:04)
[2021-07-06] MEDS: ZINC SULFATE PO SCH ×2 (08:04→20:26)
[2021-07-06] MEDS: LIPITOR TAB 80 MG PO SCH (08:04)
[2021-07-06] MEDS: PEPCID TAB 40 MG PO SCH ×2 (08:04→20:26)
[2021-07-06] MEDS: VITAMIN D3 125 mcg (5,000 UNITS) PO SCH (08:04)
[2021-07-06] MEDS ORDERED: DECADRON TAB PO SCH (09:00)
[2021-07-06] MEDS: BROVANA IN SCH ×2 (09:55→20:57)
[2021-07-06] MEDS: PULMICORT NEB TX 0.5 MG NEB SCH ×2 (09:55→20:57)
[2021-07-06] MEDS: AVELOX TAB 400 MG PO SCH (16:40)
[2021-07-06] MEDS: MELATONIN PO SCH (20:26)
[2021-07-07] MEDS: ASCORBIC ACID INJ MULTI-DOSE VIAL 1,500 MG in NS 50 ML IV 50 ML IV SCH ×2 (02:52→08:02)
[2021-07-07 05:24] LABS: BASOPHILS % (AUTO) 0.2 % (0.2-1.0); HEMATOCRIT 38.4 % (42.0-54.0); HEMOGLOBIN 13.6 g/dL (13.5-18.0); LYMPHOCYTES # (AUTO) 0.5 X10^3/uL (1.3-2.9); LYMPHOCYTES % (AUTO) 3.2 % (21.0-51.0); MEAN CORPUSCULAR HEMOGLOBIN 30.2 pg (27.0-34.0); MEAN CORPUSCULAR HGB CONC 35.3 g/dL (33.0-35.0); MEAN CORPUSCULAR VOLUME 85.7 fL (80.0-100.0); MEAN PLATELET VOLUME 7.8 fL (7.4-11.0); MONOCYTES # (AUTO) 0.9 x10^3/uL (0.3-0.8); NEUTROPHILS # (AUTO) 13.9 x10^3/uL (2.2-4.8); NEUTROPHILS % (AUTO) 90.6 % (42.0-75.0); PLATELET COUNT 273 X10^3/uL (150.0-450.0); RED BLOOD COUNT 4.48 X10^6/uL (4.7-6.0); RED CELL DISTRIBUTION WIDTH 14.1 % (11.6-16.5); WHITE BLOOD COUNT 15.4 X10^3/uL (3.6-10.0)
[2021-07-07 05:43] LABS: ALANINE AMINOTRANSFERASE 70 Units/L (12-78); ALKALINE PHOSPHATASE 54 Units/L (46-116); ASPARTATE AMINO TRANSFERASE 44 Units/L (15-37); BLOOD UREA NITROGEN 26 mg/dL (7-18); CALCIUM 7.3 mg/dL (8.5-10.1); CARBON DIOXIDE 23.5 mmol/L (21-32); CHLORIDE 104 mmol/L (98-107); COR CA(FOR HYPOALB) 8.9 mg/dL (8.5-10.1); COR NA(FOR HYPERGLY) 139 mmol/L (136-145); CREATININE 1.05 mg/dL (0.70-1.30); SODIUM 136 mmol/L (136-145); TOTAL PROTEIN 5.3 g/dL (6.4-8.2); eGFR NON BLACK RACES > 60 (>60)
[2021-07-07 05:53] LABS: PLATELET MORPHOLOGY COMMENT NORMAL (NORMAL)
[2021-07-07] MEDS: NS 1/2 1000 ML IV 1,000 ML IV SCH (07:51)
[2021-07-07] MEDS: ACTOS PO SCH (08:02)
[2021-07-07] MEDS: DIFLUCAN PO SCH (08:02)
[2021-07-07] MEDS: VITAMIN A PO SCH (08:02)
[2021-07-07] MEDS: GLUCOPHAGE XR 24-HR PO SCH (08:03)
[2021-07-07] MEDS: CYTOTEC PO SCH (08:03)
[2021-07-07] MEDS: ELIQUIS PO SCH (08:03)
[2021-07-07] MEDS: ZINC SULFATE PO SCH (08:03)
[2021-07-07] MEDS: LIPITOR TAB 80 MG PO SCH (08:03)
[2021-07-07] MEDS: VITAMIN D3 125 mcg (5,000 UNITS) PO SCH (08:03)
[2021-07-07] MEDS: PEPCID TAB 40 MG PO SCH (08:03)
[2021-07-07] MEDS: THIAMINE HCL INJ IVP SCH (08:04)
[2021-07-07] MEDS: PROTONIX INJ 40 MG VIAL IVP SCH (08:04)
[2021-07-07] MEDS: PULMICORT NEB TX 0.5 MG NEB SCH (08:10)
[2021-07-07] MEDS: BROVANA IN SCH (08:10)
[2021-07-07] MEDS: TUSSIONEX PENNKINETIC SUSP PO PRN (08:14)
[2021-07-07 08:15] VITALS: BP 162/88
[2021-07-07] MEDS ORDERED: AVELOX TAB 400 MG PO SCH (09:00)
[2021-07-07] MEDS ORDERED: DECADRON TAB PO SCH (09:00)
== END 2021-07-07 10:50 | disposition home or self-care (01) | DRG 177 ==
LOC: ER 09:45 → MED/SURG 14:59
PROVIDERS: ADMIT Obstetrics & Gynecology Obstetrics; ATTEND Obstetrics & Gynecology Obstetrics
DX: R06.02 Shortness of breath; B37.89 Other sites of candidiasis; R06.03 Acute respiratory distress; I10 Essential (primary) hypertension; R79.89 Other specified abnormal findings of blood chemistry; U07.1 COVID-19; R79.82 Elevated C-reactive protein (CRP); J12.82 Pneumonia due to coronavirus disease 2019